=== PATIENT | male | born 1995 | race Caucasian/White ===

== ENCOUNTER 2019-06-29 22:49 | Inpatient (IN) | payer OTHER ==
[2019-06-30] MEDS ORDERED: Ondansetron ODT 4 MG TAB PO PRN (00:20)
[2019-06-30] MEDS ORDERED: Promethazine HCl 25 MG/ML VIAL IM PRN ×2 (00:20)
[2019-06-30] MEDS ORDERED: Dextrose 50% Abboject 50 ML SYRINGE SLOW IVP PRN (00:20)
[2019-06-30] MEDS ORDERED: Ondansetron PF 4 MG/2 ML Vial IVP PRN (00:20)
[2019-06-30] MEDS ORDERED: traMADol HCl 50 MG TAB PO PRN (00:20)
[2019-06-30] MEDS ORDERED: Dextrose 5% in Water 1,000 ML IV PRN (00:20)
[2019-06-30 00:32] VITALS: BMI 23.3
[2019-06-30] MEDS: Cyclobenzaprine 10 MG TAB PO PRN ×3 (00:43→22:01)
[2019-06-30] MEDS: Sodium Chloride 0.9% 1,000 ML IV SCH (00:43)
[2019-06-30] MEDS ORDERED: Acetaminophen 500 MG TAB PO SCH (00:45)
[2019-06-30 00:50] LABS: Hemoglobin 14.4 g/dL (14.0-18.0)
--- NOTE | 2019-06-30 01:28 | HP ---
REQUESTING PHYSICIAN: Kraig Corea MD HISTORY OF PRESENT ILLNESS: The patient is a 23-year-old man, who was transferred here from [facility] Emergency Department after reportedly having a collision while playing soccer. The patient took his knee specifically to his left flank. The patient had significant pain, discomfort, was taken by privately owned vehicle to one of the free-standing [facility], where he underwent evaluation and examination and was noted to have a grade 3 renal laceration on the left side and left 9th rib fracture, at which time, he was transferred to our facility for admission and observation. The patient denied any loss of consciousness. No nausea or vomiting. His chief complaint remains a left flank pain. The patient did have gross hematuria at the emergency department. ALLERGIES: NONE. CURRENT MEDICATIONS: 1. Zyrtec. 2. Flonase. 3. Fish oil. 4. Multivitamins. PAST MEDICAL HISTORY: None. PAST SURGICAL HISTORY: [place]eth. 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 He lives in apartment with friends. He denies drug or tobacco use and very rare alcohol. REVIEW OF SYSTEMS: A 10-point review of systems is negative except as otherwise stated. PHYSICAL EXAMINATION: VITAL SIGNS: Blood pressure 125/65, heart rate 68, respirations 16, oxygen saturation 98% on room air, and temperature is 98.7. GENERAL: The patient is resting comfortably in bed. He is awake, alert, and oriented x3. [place] Coma Scale is 15. HEENT: Head is normocephalic atraumatic. Eyes, extraocular motion intact. PERRLA bilaterally. Ears are atraumatic without discharge. Nose is atraumatic without discharge. Oropharynx is clear. NECK: Nontender trachea is midline with no JVD. CHEST: Clear to auscultation with good inspiratory and expiratory effort. HEART: Regular rate and rhythm. ABDOMEN: Soft, flat, with minimal left upper quadrant tenderness. Positive bowel sounds. Pelvis is stable. EXTREMITIES: Neurovascularly intact x4. BACK: Nontender to the midline. Positive CVA tenderness on the left. LABORATORY FINDINGS: White blood cell count 9.3, hemoglobin 14.1, hematocrit 41.3, platelets 189. Sodium 139, potassium 4.0, chloride 105, CO2 25, BUN 30, creatinine 1.2, glucose 139. Urinalysis shows positive blood with TNTC red blood cells. RADIOGRAPHIC FINDINGS: AP chest with left rib series show a left 9th rib fracture. CT of the abdomen and pelvis with IV contrast shows again the left nondisplaced 9th rib fracture and a grade 3 left renal laceration. ASSESSMENT AND PLAN: 1. Status post collision during soccer game. 2. Left ninth rib fracture. 3. Grade 3 left renal laceration. 4. Gross hematuria. 5. Acute pain secondary to trauma. PLAN: Plan will be to admit the patient to the surgical floor for observation. We will do IV hydration, pain control, pulmonary toilet, gastritis and mechanical VTE prophylaxis. Repeat his labs in the morning. The patient will be made n.p.o. after midnight purely as a precaution. It is unlikely the patient will require surgical intervention or embolization, but regardless we will make him n.p.o. after midnight and hydrating with IV fluids. The patient's medical records from [place] and his radiographic CD were sent to the floor with him. Dr. Toth was aware of the patient as he took the call from [place]. He will evaluate the patient in the morning during rounds. Job ID: [id number]
[2019-06-30 04:43] LABS: #Eosinphils 0.1 thou/uL (0.0-0.7); #Lymphocytes 1.6 thou/uL (1.20-3.40); #Monocytes 0.9 thou/uL (0.11-0.59); #Neutrophils 6.1 thou/uL (1.40-6.50); %Basophils 0.1 % (0.0-1.0); %Eosinophils 0.7 % (0.0-10.0); %Lymphocytes 18.9 % (21.0-51.0); %Neutrophils 70.3 % (42.0-75.0); Hemoglobin 13.3 g/dL (14.0-18.0); Mean Corpuscular HGB CONC 34.6 g/dL (32.0-36.0); Mean Corpuscular Hemoglobin 31.2 pg (27.0-31.0); Mean Corpuscular Volume 90.1 fL (78.0-98.0); Mean Platelet Volume 7.4 fL (7.4-10.4); Platelet Count 204 thou/uL (130-400); RBC Distribution Width 11.1 % (11.5-14.5); Red Blood Cell (RBC) Count 4.27 mill/uL (4.70-6.10); White Blood Cell (WBC) Count 8.7 thou/uL (4.8-10.8)
[2019-06-30 05:03] LABS: Anion Gap 13 mmol/L (10-20); BUN (Urea Nitrogen) 25 mg/dL (8.9-20.6); Calc. Creatinine Clearance 105 mL/min (70-130); Calcium 8.7 mg/dL (7.8-10.44); Carbon Dioxide 24 mmol/L (22-29); Chloride 106 mmol/L (98-107); Estimated GFR-MDRD 88; Glucose 101 mg/dL (70-105); Potassium 3.8 mmol/L (3.5-5.1); Sodium 139 mmol/L (136-145)
[2019-06-30] MEDS: Acetaminophen 500 MG TAB PO SCH ×3 (05:30→18:16)
[2019-06-30] MEDS: traMADol HCl 50 MG TAB PO PRN ×2 (05:30→14:07)
[2019-06-30] MEDS: Famotidine 20 MG TAB PO SCH ×2 (08:41→20:31)
[2019-06-30 14:46] LABS: #Lymphocytes 1.6 thou/uL (1.20-3.40); #Monocytes 1.3 thou/uL (0.11-0.59); #Neutrophils 16.2 thou/uL (1.40-6.50); %Basophils 0.2 % (0.0-1.0); %Eosinophils 0.2 % (0.0-10.0); %Lymphocytes 8.2 % (21.0-51.0); %Monocytes 6.7 % (0.0-10.0); %Neutrophils 84.7 % (42.0-75.0); Hemoglobin 13.7 g/dL (14.0-18.0); Mean Corpuscular HGB CONC 34.7 g/dL (32.0-36.0); Mean Corpuscular Hemoglobin 31.2 pg (27.0-31.0); Mean Corpuscular Volume 89.9 fL (78.0-98.0); Mean Platelet Volume 7.2 fL (7.4-10.4); Platelet Count 183 thou/uL (130-400); RBC Distribution Width 11.2 % (11.5-14.5); White Blood Cell (WBC) Count 19.1 thou/uL (4.8-10.8)
[2019-06-30 14:55] LABS: Anion Gap 12 mmol/L (10-20); BUN (Urea Nitrogen) 19 mg/dL (8.9-20.6); Calc. Creatinine Clearance 118 mL/min (70-130); Calcium 8.4 mg/dL (7.8-10.44); Carbon Dioxide 22 mmol/L (22-29); Chloride 106 mmol/L (98-107); Estimated GFR-MDRD Greater than 90; Glucose 116 mg/dL (70-105); Potassium 4.1 mmol/L (3.5-5.1); Sodium 136 mmol/L (136-145)
[2019-06-30] MEDS: Gabapentin 300 MG CAP PO PRN (14:59)
[2019-06-30] MEDS ORDERED: Senokot S 8.6-50 MG TAB PO SCH (15:00)
[2019-06-30] MEDS ORDERED: Polyethylene Glycol 3350 17 GM Packet PO SCH (15:00)
[2019-06-30] MEDS: traMADol HCl 50 MG TAB PO SCH ×2 (15:03→20:29)
[2019-06-30] MEDS: Senokot S 8.6-50 MG TAB PO SCH (20:30)
[2019-06-30] MEDS ORDERED: FLU VACC QS2019-20(6MOS UP)/PF 60 MCG/0.5 ML SYRINGE IM ONE (21:00)
[2019-07-01] MEDS: Acetaminophen 500 MG TAB PO SCH ×5 (00:42→23:29)
[2019-07-01] MEDS: Sodium Chloride 0.9% 1,000 ML IV SCH ×5 (00:43→19:10)
--- NOTE | 2019-07-01 01:19 | PRG ---
DATE OF SERVICE: 07/01/2019 SUBJECTIVE: Mr. Rodriguez is a 23-year-old man, who was struck from the side during a soccer during a soccer game. The patient suffered a grade 3 left kidney laceration. At the time my evaluation patient is awake and alert, reports adequate pain control. OBJECTIVE: VITAL SIGNS: Include blood pressure 119/69, pulse 70, respiratory rate is 18, temperature 98.1 degrees Fahrenheit, oxygen saturation 97%. HEART: Reveals regular rate and rhythm. No murmurs or gallops auscultated. LUNGS: Clear to auscultation bilaterally. Breathing, regular and nonlabored. ABDOMEN: Soft and nondistended with [id number] left subcostal tenderness to palpation. He clearly has no peritoneal signs on examination. LABORATORY FINDINGS: Include a CBC with 19,100 white blood cells, hemoglobin and hematocrit have stayed stable at 13.7 and 39.6 respectively, Platelet count is a 183,000 and stable. Metabolic profile includes sodium 136, potassium 4.1, chloride is 106, bicarb is 22, BUN is 19, creatinine 0.95, glucose is 216. IMPRESSIONS: Grade 3 left kidney laceration secondary to a blunt trauma to the abdomen. PLAN: Continue with bedrest as the patient continues to have gross hematuria. We will continue with serial physical and laboratory examinations. There is no acute surgical indication for this patient at this time. We will repeat laboratory studies in the morning, make further recommendations as necessary. Job ID: [id number]
[2019-07-01] MEDS: traMADol HCl 50 MG TAB PO SCH ×4 (02:32→20:33)
[2019-07-01] MEDS: Gabapentin 300 MG CAP PO PRN (03:51)
[2019-07-01 05:41] LABS: #Eosinphils 0.1 thou/uL (0.0-0.7); #Lymphocytes 1.4 thou/uL (1.20-3.40); #Neutrophils 11.9 thou/uL (1.40-6.50); %Basophils 0.2 % (0.0-1.0); %Eosinophils 0.4 % (0.0-10.0); %Lymphocytes 9.8 % (21.0-51.0); %Monocytes 7.1 % (0.0-10.0); %Neutrophils 82.5 % (42.0-75.0); Hemoglobin 12.9 g/dL (14.0-18.0); Mean Corpuscular HGB CONC 35.2 g/dL (32.0-36.0); Mean Corpuscular Hemoglobin 31.9 pg (27.0-31.0); Mean Corpuscular Volume 90.6 fL (78.0-98.0); Mean Platelet Volume 7.1 fL (7.4-10.4); Platelet Count 173 thou/uL (130-400); RBC Distribution Width 11.2 % (11.5-14.5); Red Blood Cell (RBC) Count 4.04 mill/uL (4.70-6.10); White Blood Cell (WBC) Count 14.4 thou/uL (4.8-10.8)
[2019-07-01] MEDS ORDERED: HYDROcodone/Acetaminophen 5/325 mg Tablet PO PRN (05:47)
[2019-07-01 05:57] LABS: Anion Gap 10 mmol/L (10-20); BUN (Urea Nitrogen) 12 mg/dL (8.9-20.6); Calc. Creatinine Clearance 118 mL/min (70-130); Calcium 8.3 mg/dL (7.8-10.44); Carbon Dioxide 25 mmol/L (22-29); Chloride 104 mmol/L (98-107); Estimated GFR-MDRD Greater than 90; Glucose 82 mg/dL (70-105); Potassium 3.9 mmol/L (3.5-5.1); Sodium 135 mmol/L (136-145)
[2019-07-01] MEDS: Polyethylene Glycol 3350 17 GM Packet PO SCH (09:12)
[2019-07-01] MEDS: Gabapentin 100 MG CAP PO SCH ×3 (09:13→20:32)
[2019-07-01] MEDS: Loratadine 10 MG TAB PO SCH (09:13)
[2019-07-01] MEDS: Famotidine 20 MG TAB PO SCH ×2 (09:14→20:32)
[2019-07-01] MEDS: Fluticasone Propionate Nasal Spray 16 gm Bottle NASAL SCH (09:25)
[2019-07-01] MEDS: Cyclobenzaprine 10 MG TAB PO PRN (10:48)
[2019-07-01] MEDS: Senokot S 8.6-50 MG TAB PO SCH ×2 (10:48→20:33)
--- NOTE | 2019-07-01 16:02 | PRG ---
DATE OF SERVICE: 07/01/2019 SUBJECTIVE: Mr. Rodriguez is a 23-year-old male, who was struck from the side during playing soccer. The patient sustained a grade 3 left kidney laceration and left rib fracture. The patient had an episode of excruciating pain yesterday, which caused him in which he has been stable. Vital signs have been stable. His GCS is 15 and after that we adjusted his pain medication during last night and he reports doing good. No overnight events. His urine is T-collar. He tolerated with his fluid diet. Pain is better controlled today. OBJECTIVE: GENERAL: The patient is lying down in bed, comfortable, with no acute distress. VITAL SIGNS: Temperature 98, heart rate 78, respiratory rate 18, O2 saturation 93% on room air, blood pressure 124/71. LUNGS: Clear bilaterally. HEART: Regular rate and rhythm. ABDOMEN: Soft and nondistended. EXTREMITIES: Neurovascularly intact x4. NEUROLOGIC: No focal neurology deficits. ASSESSMENT: 1. Status post struck injury during soccer game. 2. Left kidney laceration, stable. 3. Left rib fracture, stable. PLAN: Continue current pain management regimen. We will add stool softener and Dr. Toth ordered walking program, gentle, inside the room and possibly outside in front of the door, but no heavy or sudden movement is allow. Continue non-pharmacology DVT prophylaxis. Job ID: [id number]
[2019-07-01] MEDS: guaiFENesin/DM ER PO SCH (20:19)
--- NOTE | 2019-07-01 20:43 | CON ---
DATE OF CONSULTATION: 07/01/2019 REQUESTING PHYSICIAN: Dr. Rudy Toth. REASON FOR CONSULTATION: Left renal laceration. HISTORY OF PRESENT ILLNESS: Mr. Rodriguez is a 23-year-old male, who presented to the [facility] Emergency Department 2 nights ago after having a collision while playing a club soccer game for the [employer] at [place] [employer] and , the patient took his knee to his left flank. He presented to the emergency department, at which point, a CT scan was performed. This demonstrated an approximate 1.5-cm renal laceration on the left side to the anterior pole and a left 9th rib fracture. The patient was transferred to [facility] for admission. Since then, he has had some gross hematuria. Reports tea-colored urine currently. Again, left flank pain, although this is improving. He has been completely hemodynamically stable. He has no significant past medical history. He does not take anticoagulants. No other complaints. PAST MEDICAL HISTORY: None. PAST SURGICAL HISTORY: [place] teeth. ALLERGIES: NO KNOWN DRUG ALLERGIES. MEDICATIONS: 1. Zyrtec. 2. Flonase. 3. Fish oil. 4. Multivitamins. 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 No illicit drugs or alcohol. REVIEW OF SYSTEMS: Full 12-point review of systems was performed and is negative other than that mentioned in HPI. PHYSICAL EXAMINATION: VITAL SIGNS: Temperature is 98.7, pulse 68, respirations 12, blood pressure 125/65, oxygen saturation 98% on room air. GENERAL: He is alert and oriented x3, in no apparent distress, resting comfortably in bed. HEENT: Normocephalic, atraumatic. NECK: Supple. No masses or lymphadenopathy. CARDIOVASCULAR: Regular rate and rhythm. PULMONARY: Breathing unlabored. ABDOMEN: Soft, nontender, nondistended. No masses or organomegaly. No suprapubic tenderness to palpation. No CVA tenderness. EXTREMITIES: Warm and well perfused. No edema. NEUROLOGIC: No focal deficits. LABORATORY DATA: White blood cell count 14.4, hemoglobin 12.9, hematocrit 36.6, platelets . Sodium 135, potassium 3.9, chloride 104, bicarb 24, BUN 12, creatinine 0.95. RADIOLOGY DATA: CT of the abdomen and pelvis demonstrates findings. Please see scanned report for details. I reviewed these films and agreed with the radiologist's interpretation. The collecting system, although not opacified with contrast, appears to be away from the area of injury. ASSESSMENT: A 23-year-old male with grade 2 to 3 left renal laceration. PLAN: I reviewed the natural history and clinical implications of traumatic renal lacerations with the patient and his mother in detail. He is hemodynamically stable. The patient's hematuria is improving. His pain is improving. I explained that there is no indication for operative intervention at this time. I do recommend repeat imaging on the kidney within 6 weeks to ensure healing. This can be performed in [place]. He was given the name of Dr. Harjeet Vargas and Dr. Hari Westbrook to followup with in [place] or he can follow up in [place] with me. Thank you for allowing me to participate in the care of this patient. Job ID: [id number]
--- NOTE | 2019-07-02 01:48 | PRG ---
DATE OF SERVICE: 07/02/2019 SUBJECTIVE: The patient is currently on the surgical floor. He is status post a soccer collision, in which he sustained a grade 2-3 left renal laceration and left 9th rib fracture. The patient was evaluated by Urology today, and they stated that they were pleased with his urinary output. His hemoglobin and his hematuria are improving. They stated that it did not appear that any intervention needed to be taken at this point, and they recommended repeat imaging in [address] 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 He may also follow up here with Dr. Verma if he desires. Otherwise, the patient's pain is controlled and he is tolerating a diet. He has been ambulating. PHYSICAL EXAMINATION: VITAL SIGNS: Stable. The patient is afebrile. GENERAL: The patient is resting comfortably in bed. He is awake, alert, and oriented x3. He appears in no discomfort. RESPIRATORY: Respirations are nonlabored. ABDOMEN: Soft, nontender with active bowel sounds. EXTREMITIES: Neurovascularly intact x4. ASSESSMENT: 1. Status post collision during soccer. 2. Left grade 2-3 renal laceration. 3. Left 9th rib fracture. PLAN: Plan will be to continue supportive care monitoring and the patient will likely be discharged in the next 24 to 48 hours. Job ID: [id number]
[2019-07-02] MEDS: traMADol HCl 50 MG TAB PO SCH ×2 (03:07→15:19)
[2019-07-02] MEDS: Sodium Chloride 0.9% 1,000 ML IV SCH (03:08)
[2019-07-02] MEDS: Acetaminophen 500 MG TAB PO SCH ×2 (05:16→13:18)
[2019-07-02] MEDS: Gabapentin 100 MG CAP PO SCH ×2 (08:07→15:16)
[2019-07-02] MEDS: Senokot S 8.6-50 MG TAB PO SCH (08:08)
[2019-07-02] MEDS: Famotidine 20 MG TAB PO SCH (08:08)
[2019-07-02] MEDS: Polyethylene Glycol 3350 17 GM Packet PO SCH (08:08)
[2019-07-02] MEDS: Loratadine 10 MG TAB PO SCH (08:08)
[2019-07-02] MEDS: Fluticasone Propionate Nasal Spray 16 gm Bottle NASAL SCH (08:08)
[2019-07-02] MEDS: guaiFENesin/DM ER PO SCH (08:08)
[2019-07-02] MEDS ORDERED: Bisacodyl 10 MG SUPP PR SCH ×2 (08:30→10:00)
--- NOTE | 2019-07-02 14:12 | PRG ---
DATE OF SERVICE: 07/02/2019 SUBJECTIVE: Mr. Rodriguez is a 23-year-old male who was struck on the side during playing soccer game. The patient sustained grade 3 left kidney laceration and left rib fracture. The patient reports he has been doing better in regard to pain control. He is able to walk gently around the room and in front of his door . He is tolerating his regular diet. His urine color is tea colored. Today, his vital signs have been stable. His hemoglobin also has been stable. OBJECTIVE: GENERAL: The patient lying down in bed, comfortable, with no acute distress. VITAL SIGNS: Temperature 98.5, heart rate 92, blood pressure 147/88, respiratory rate 18, O2 saturation 95 %on room air. LUNGS: Clear bilaterally. HEART: Regular rate and rhythm. ABDOMEN: Soft, nondistended. EXTREMITIES: Neurovascularly intact x4. ASSESSMENT: 1. Status post injury during soccer game. 2. Left rib fracture, stable. 3. Left kidney laceration grade 3, stable. PLAN: We will continue supportive care. Continue pain control. Urology saw him yesterday. He is stable and he can be discharged after he has his bowel and tolerates his regular diet. Anticipate discharge tomorrow. The patient was seen and evaluated with Dr. Toth on round this morning. Job ID: [id number]
[2019-07-02 15:13] VITALS: BP 141/80; TEMP 98.7
== END 2019-07-02 17:55 | disposition home or self-care (01) | DRG 699 ==
LOC: ERS 22:49 → OBSVTOIN 06-30 00:19 → SJJU 06-30 00:19
PROVIDERS: ADMIT Surgery; ATTEND Surgery
DX: S37.052A Moderate laceration of left kidney, initial encounter (principal); S22.32XA Fracture of one rib, left side, initial encounter for closed fracture; S37.022A Major contusion of left kidney, initial encounter; R31.0 Gross hematuria; Y93.66 Activity, soccer; Y92.39 Other specified sports and athletic area as the place of occurrence of the external cause
CPT/HCPCS: 36415; 36416; 80048; 82533; 84484; 85014; 85018; 85025; 99284